=== PATIENT | female | born 1975 | race Caucasian/White ===

== ENCOUNTER 2016-08-12 03:12 | Emergency (ER) | payer OTHER ==
[~2016-08-12 03:12] MED LIST: HYDROCHLOROTHIA25 MG PO; MOTRIN800 MG PO; TAM75 PO; ZES10 PO
[2016-08-12 04:08] VITALS: BP 132/92
== END 2016-08-12 04:08 | disposition home or self-care (01) ==
LOC: ED 03:12
DX: R59.0 Localized enlarged lymph nodes (principal)